=== PATIENT | female | born 1955 | race Caucasian/White ===

== ENCOUNTER 2020-06-29 20:08 | Emergency (ER) | payer MEDICAID, OTHER ==
[~2020-06-29] VITALS: Ht 160 cm; Wt 65.5 kg
[2020-06-29 20:11] VITALS: BP 142/88
== END 2020-06-29 21:09 | disposition left against medical advice (07) ==
LOC: ED 21:00
DX: M79.89 Other specified soft tissue disorders (principal); Z53.21 Procedure and treatment not carried out due to patient leaving prior to being seen by health care provider

== ENCOUNTER 2020-10-02 05:36 | Emergency (ER) | payer MEDICAID ==
[~2020-10-02] VITALS: Ht 160 cm; Wt 70.7 kg
[2020-10-02 05:37] VITALS: BP 150/93
== END 2020-10-02 06:15 | disposition home or self-care (01) ==
LOC: ED 06:00
DX: K02.9 Dental caries, unspecified (principal); K08.89 Other specified disorders of teeth and supporting structures; Z87.891 Personal history of nicotine dependence
CPT/HCPCS: 99283

== ENCOUNTER 2020-10-04 05:29 | Emergency (ER) | payer MEDICAID ==
[~2020-10-04] VITALS: Ht 160 cm; Wt 70.0 kg
[2020-10-04 05:30] VITALS: BP 125/72
[2020-10-04] MEDS ORDERED: METOCLOPRAMIDE 5 MG/ML, 2ML ONE (05:51)
[2020-10-04] MEDS ORDERED: KETOROLAC 30 MG/1 ML ONE (05:51)
[2020-10-04] MEDS ORDERED: KETOROLAC 30 MG/1 ML IM ONE (06:00)
[2020-10-04] MEDS ORDERED: METOCLOPRAMIDE 5 MG/ML, 2ML IM ONE (06:00)
== END 2020-10-04 06:14 | disposition home or self-care (01) ==
LOC: ED 06:11
DX: K02.9 Dental caries, unspecified (principal); R51.9 Headache, unspecified; Z87.891 Personal history of nicotine dependence
CPT/HCPCS: 96372; 99284; J1885; J2765